=== PATIENT | male | born 1995 | race Hispanic/Latino ===

== ENCOUNTER 2018-09-01 10:59 | Emergency (ER) | payer OTHER ==
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
[2018-09-01] MEDS ORDERED: IBUPROFEN 800 MG TAB PO ONE (11:45)
[2018-09-01] MEDS ORDERED: ACETAMINOPHEN 500 MG TAB PO ONE (11:45)
--- NOTE | 2018-09-01 12:27 | REP ---
Thoracic spine three views: Vertebral body heights, interspacing alignment are normal. There are no compression deformities. There is no listhesis. The pedicles are unremarkable. Impression: Negative thoracic spine. Electronically Signed by Hugo Churchill MD 09/01/2018 12:19 P
[2018-09-01 13:16] VITALS: BP 110/72
== END 2018-09-01 13:36 | disposition home or self-care (01) ==
LOC: EDBD 10:59 → M ED 10:59
DX: S29.012A Strain of muscle and tendon of back wall of thorax, initial encounter (principal); S16.1XXA Strain of muscle, fascia and tendon at neck level, initial encounter; V43.62XA Car passenger injured in collision with other type car in traffic accident, initial encounter; Y92.9 Unspecified place or not applicable; Y93.9 Activity, unspecified; Y99.9 Unspecified external cause status